=== PATIENT | male | born 1960 | race Caucasian/White ===

== ENCOUNTER 2021-05-25 08:32 | Day surgery (SDC) | payer MEDICAID ==
[~2021-05-25] VITALS: Ht 170.2 cm; Wt 72.7 kg
[2021-05-25] MEDS ORDERED: RIVA15TA PO (09:22)
[2021-05-25 09:26] VITALS: BP 117/79
[2021-05-25] MEDS ORDERED: SODIUM CHLORIDE 0.9% 1,000 ML IV SCH ×2 (09:30→12:00)
[2021-05-25] MEDS ORDERED: DIPHENHYDRAMINE 50 MG/ML, 1ML IVPush ONE (09:30)
[2021-05-25 09:47] LABS: BASOPHILS % (AUTO) 1 % (0-1); CHLORIDE 106 mmol/L (98-107); EOSINOPHILS % (AUTO) 2 % (1-7); INTERNATIONAL NORMALIZED RATIO 0.96 (0.93-1.1); LYMPHOCYTES % (AUTO) 21 % (22-44); MEAN CORPUSCULAR HEMOGLOBIN 30.7 pg (27.5-34.5); MEAN CORPUSCULAR HGB CONC 33.2 g/dL (33.2-36.2); MEAN PLATELET VOLUME 7.4 fL (7.4-10.4); MONOCYTES % (AUTO) 9 % (2-9); NEUTROPHILS % (AUTO) 67 % (42-75); PLATELET COUNT 210 x10^3/uL (130-400); PROTHROMBIN TIME 10.3 Seconds (9.6-11.5); RED BLOOD COUNT 5.31 x10^6/uL (4.38-5.82)
[2021-05-25 09:48] LABS: ANION GAP 4 mmol/L (5-15); CALCIUM 9.2 mg/dL (8.5-10.1); CREATININE 0.91 mg/dL (0.7-1.3)
[2021-05-25] MEDS ORDERED: DIPHENHYDRAMINE 50 MG/ML, 1ML ONE (10:16)
[2021-05-25] MEDS ORDERED: MIDAZOLAM 1 MG/ML, 5ML ONE (10:21)
[2021-05-25] MEDS ORDERED: FENTANYL PF 100 MCG/2ML ONE (10:21)
[2021-05-25] MEDS ORDERED: VERAPAMIL 2.5 MG/ML, 2ML ONE (10:21)
[2021-05-25] MEDS ORDERED: HEPARIN 1,000 UNITS/ML, 10ML ONE (10:22)
[2021-05-25] MEDS ORDERED: LIDOCAINE-MPF 1%, 5ML ONE (10:22)
[2021-06-10] MEDS ORDERED: MACI10TA PO (16:36)
== END 2021-05-25 14:50 | disposition home or self-care (01) ==
LOC: CACL 08:32
PROVIDERS: ATTEND Internal Medicine Cardiovascular Disease
DX: R06.02 Shortness of breath (principal); I27.20 Pulmonary hypertension, unspecified; J44.9 Chronic obstructive pulmonary disease, unspecified; F17.210 Nicotine dependence, cigarettes, uncomplicated; E66.3 Overweight; Z68.24 Body mass index [BMI] 24.0-24.9, adult; Z79.01 Long term (current) use of anticoagulants; Z79.899 Other long term (current) drug therapy; Z88.8 Allergy status to other drugs, medicaments and biological substances
CPT/HCPCS: 36415; 80048; 83880; 85025; 85610; 85730; 93456; 99156; 99157; C1769; C1894; J1200; J1644; J2250; J3010; J7030; Q9967